=== PATIENT | female | born 1975 | race Caucasian/White ===

== ENCOUNTER 2016-07-21 20:43 | Emergency (ER) | payer OTHER ==
[~2016-07-21] VITALS: Ht 160 cm; Wt 90.3 kg
[2016-07-21] MEDS ORDERED: NORCO 5/3251 TABLET PO (21:55)
[2016-07-21] MEDS ORDERED: MOTRIN600 MG PO (21:55)
[2016-07-21 22:12] VITALS: BP 145/88
== END 2016-07-21 22:12 | disposition home or self-care (01) ==
LOC: EME 20:43
PROC: 2W3MX1Z Immobilization of Left Lower Extremity using Splint (ICD-10-PCS; principal; 2016-07-21)
DX: S83.92XA Sprain of unspecified site of left knee, initial encounter (principal); S86.912A Strain of unspecified muscle(s) and tendon(s) at lower leg level, left leg, initial encounter; X50.0XXA Overexertion from strenuous movement or load, initial encounter; Y93.64 Activity, baseball
CPT/HCPCS: 73564; 99281; 99284